=== PATIENT | male | born 1965 | race Caucasian/White ===

== ENCOUNTER → 2018-07-16 | Outpatient (CLI) | payer OTHER | LOC: M RAD 16:15 | DX: J32.0 Chronic maxillary sinusitis (principal) | CPT/HCPCS: 70486 ==

== ENCOUNTER 2018-11-09 22:02 | Day surgery (SDC) | payer OTHER ==
[~2018-11-09] VITALS: Ht 182.9 cm; Wt 105.0 kg
[2018-11-09] MEDS: MORPHINE 2 MG/ML 1ML SYRINGE (J2270) IV PRN ×4 (22:26→23:28)
[2018-11-09] MEDS ORDERED: ONDANSETRON 4MG/2ML VIAL (J2405) IV ONE (22:30)
[2018-11-09] MEDS ORDERED: NS 1,000 ML IV ONE (22:30)
[2018-11-09 23:14] LABS: BASO # 0.1 10^3/uL (0.0-0.2); BASO % 0.6 % (0.0-1.0); EOS # 0.2 10^3/uL (0.0-0.50); EOS % 1.6 % (0.0-3.0); HEMATOCRIT 42.4 % (42.0-52.0); HEMOGLOBIN 14.3 g/dl (13.5-17.5); LYMPH # 3.8 10^3/uL (1.5-4.5); LYMPH % 33.7 % (24.0-44.0); MEAN CORPUSCULAR HEMOGLOBIN 32.5 pg (27.0-33.0); MEAN CORPUSCULAR HGB CONC 33.7 g/dl (32.0-36.5); MEAN CORPUSCULAR VOLUME 96.4 fl (80.0-96.0); MONO # 0.7 10^3/uL (0.0-0.8); MONO % 6.5 % (0.0-5.0); NEUTROPHILS # 6.5 10^3/uL (1.8-7.7); NEUTROPHILS % 57.2 % (36.0-66.0); PLATELET COUNT, AUTOMATED 192 10^3/uL (150-450); WHITE BLOOD COUNT 11.4 10^3/uL (4.0-10.0)
[2018-11-09] MEDS ORDERED: ISOVUE-370 76% 100ML VIAL (Q9967) As Ordered ONE (23:17)
[2018-11-09] MEDS ORDERED: fentaNYL 100 MCG/2 ML INJECTION (J3010) IV ONE (23:30)
[2018-11-09 23:57] LABS: ALBUMIN 3.6 GM/DL (3.2-5.2); ALT/SGPT 40 U/L (12-78); BILIRUBIN,DIRECT < 0.1 MG/DL (0.0-0.2); BILIRUBIN,TOTAL 0.3 MG/DL (0.2-1.0); BLOOD UREA NITROGEN 18 MG/DL (7-18); CALCIUM LEVEL 8.2 MG/DL (8.5-10.1); CARBON DIOXIDE LEVEL 25 MEQ/L (21-32); CHLORIDE LEVEL 108 MEQ/L (98-107); CREATININE FOR GFR 1.07 MG/DL (0.70-1.30); GLOMERULAR FILTRATION RATE > 60.0 (>56); GLUCOSE, FASTING 131 MG/DL (70-100); LIPASE 70 U/L (73-393); POTASSIUM SERUM 4.4 MEQ/L (3.5-5.1); SODIUM LEVEL 142 MEQ/L (136-145)
[2018-11-10] MEDS ORDERED: HYDROMORPHONE HCL 0.5 MG/ 0.5 ML SYRINGE (J1170 PER 1) IV ONE ×2 (01:00→03:45)
--- NOTE | 2018-11-10 01:09 | REPVR ---
EXAM: CT Abdomen and Pelvis With Contrast EXAM DATE/TIME: 11/09/2018 10:19 PM CLINICAL HISTORY: 52 years old, male; Pain; Abdominal pain; Generalized; Additional info: Abdominal pain, eval for appy TECHNIQUE: Axial computed tomography images of the abdomen and pelvis with intravenous contrast. All CT scans at this facility use at least one of these dose optimization techniques: automated exposure control; mA and/or kV adjustment per patient size (includes targeted exams where dose is matched to clinical indication); or iterative reconstruction. Coronal and sagittal reformatted images were created and reviewed. CONTRAST: 100 ml of iso administered intravenously. COMPARISON: No relevant prior studies available. FINDINGS: Lower thorax: Dependent atelectasis in the lung. ABDOMEN: Liver: Cyst in the caudate lobe of the liver measuring 2.7 cm in diameter. Gallbladder and bile ducts: Cerebral gallstones in the gallbladder. No gallbladder wall thickening. CBD measures 13 mm in diameter. Pancreas: Normal. No ductal dilation. Spleen: Normal. No splenomegaly. Adrenals: Normal. No mass. Kidneys and ureters: Normal. No hydronephrosis. Stomach and bowel: Normal. No obstruction. No mucosal thickening. Negative for colonic diverticulitis. Appendix: Appendix is normal. PELVIS: Bladder: Unremarkable as visualized. Reproductive: Prostate is normal in size. ABDOMEN and PELVIS: Intraperitoneal space: Normal. No free air. No significant fluid collection. Bones/joints: No acute fracture. No dislocation. Soft tissues: Unremarkable. Vasculature: Mild atherosclerotic disease. No aortic aneurysm. Lymph nodes: Normal. No enlarged lymph nodes. IMPRESSION: Cholelithiasis without evidence of acute cholecystitis. Dilated CBD. Correlate with labs. Hepatic cyst. No followup is necessary. Additional findings as described. Electronically signed by: Marlyn Dumont On 11/10/2018 01:09:16 AM
--- NOTE | 2018-11-10 02:42 | REPVR ---
EXAM: US Abdomen Limited, Right Upper Quadrant EXAM DATE/TIME: 11/10/2018 2:17 AM CLINICAL HISTORY: 52 years old, male; Pain; Abdominal pain; Generalized; Additional info: Gb eval TECHNIQUE: Real-time ultrasound of the abdomen with image documentation. Examination was focused on the right upper quadrant. COMPARISON: CT ABD/PEL W/IV CONTRAST ONLY 11/10/2018 12:04 AM FINDINGS: Limitations: Examination is limited by body habitus. Liver: Normal. No masses. Gallbladder: Few nonmobile gallstone in the gallbladder. No ring down shadow. No gallbladder wall thickening. Gallbladder is distended. Common bile duct: CBD measures 10 mm in diameter. No biliary duct stone on ultrasound. Pancreas: Pancreas is obscured by overlying bowel gas. Right kidney: Right kidney measures 9.5 cm in length. No hydronephrosis. IMPRESSION: Few gallstones in the gallbladder. No evidence of acute cholecystitis on ultrasound. Dilated CBD. Correlate with labs. Distal obstructing stone or biliary lesion cannot be excluded. Electronically signed by: Marlyn Dumont On 11/10/2018 02:41:33 AM
[2018-11-10] MEDS: D5W/LR 1,000 ML IV SCH ×2 (03:41→08:45)
[2018-11-10] MEDS ORDERED: ONDANSETRON 4MG/2ML VIAL (J2405) IV ONE (03:45)
[2018-11-10] MEDS ORDERED: [UNRECOGNIZED DRUG - OTHER] EXT (04:04)
[2018-11-10] MEDS ORDERED: TIZA4CAP PO (04:04)
[2018-11-10] MEDS ORDERED: ARTI99.0 OU (04:04)
[2018-11-10] MEDS ORDERED: OCEA0.654 (04:04)
[2018-11-10] MEDS ORDERED: ASPI81CH PO (04:04)
[2018-11-10] MEDS ORDERED: FLON1SPR (04:04)
[2018-11-10] MEDS ORDERED: CELE100C PO (04:04)
[2018-11-10] MEDS ORDERED: PATIENT COMMENT (04:06)
[2018-11-10] MEDS ORDERED: ONDANSETRON 4MG/2ML VIAL (J2405) IV PRN ×2 (09:00→13:30)
[2018-11-10] MEDS ORDERED: ACETAMINOPHEN TAB 650MG DOSE (2X325MG) PO PRN (09:00)
[2018-11-10] MEDS ORDERED: MORPHINE 2 MG/ML 1ML SYRINGE (J2270) As Ordered ONE (09:22)
[2018-11-10] MEDS ORDERED: KETOROLAC 30 MG/ML VIAL (J1885) As Ordered ONE (09:22)
[2018-11-10] MEDS: MORPHINE 4 MG/ML 1ML VIAL/SYRINGE (J2270) IV PRN ×2 (09:25→18:51)
[2018-11-10] MEDS: KETOROLAC 30 MG/ML VIAL (J1885) IV PRN ×2 (09:26→17:25)
[2018-11-10] MEDS: SENOKOT S TAB PO SCH ×2 (09:33→21:37)
[2018-11-10] MEDS: NS 1,000 ML IV SCH ×2 (09:33→19:30)
[2018-11-10] MEDS: PIPERACILLIN/TAZOBACTAM SOD 3.375 GM in D5W MINI-BAG PLUS 50 ML IV SCH ×3 (10:22→21:38)
[2018-11-10] MEDS ORDERED: ONDANSETRON 4MG/2ML VIAL (J2405) As Ordered ONE (10:44)
[2018-11-10] MEDS ORDERED: dexameTHASONE 4 MG/ML 1ML VIAL (J1100) As Ordered ONE (10:44)
[2018-11-10] MEDS ORDERED: PROPOFOL 200 MG/20 ML VIAL As Ordered ONE (10:44)
[2018-11-10] MEDS ORDERED: LIDOCAINE 2% INJ 100 MG/5 ML SDV (FOR ANES.) As Ordered ONE (10:45)
[2018-11-10] MEDS ORDERED: ROCURONIUM BROMIDE 50 MG/5 ML VIAL As Ordered ONE (10:45)
[2018-11-10] MEDS ORDERED: MIDAZOLAM INJ 2 MG/2 ML VIAL (J2250) As Ordered ONE (10:48)
[2018-11-10] MEDS ORDERED: fentaNYL 250 MCG/5 ML INJECTION (J3010) As Ordered ONE (10:48)
[2018-11-10] MEDS ORDERED: BUPIVACAINE/EPIN 0.25% 30 ML VIAL As Ordered ONE (10:51)
[2018-11-10] MEDS ORDERED: PHENYLephrine HCL 500 MCG/5 ML (100MCG/ML) SYRINGE (J2370) As Ordered ONE (11:57)
[2018-11-10] MEDS ORDERED: METOCLOPRAMIDE INJ 10MG/2ML VIAL (J2765) As Ordered ONE (12:15)
[2018-11-10] MEDS ORDERED: KETOROLAC 60 MG/2 ML VIAL (J1885) As Ordered ONE (12:15)
[2018-11-10] MEDS ORDERED: HYDROmorphone HCL 2 MG/ML 1ML VIAL (J1170) As Ordered ONE (12:21)
[2018-11-10] MEDS ORDERED: SUGAMMADEX SODIUM 500 MG/5 ML VIAL (BRIDION) As Ordered ONE (12:28)
[2018-11-10] MEDS ORDERED: NORCOTAB PO (13:04)
--- NOTE | 2018-11-10 13:18 | HPE ---
DATE OF ADMISSION: 11/10/2018 CHIEF COMPLAINT: Abdominal pain. HISTORY OF PRESENT ILLNESS: The patient is a 52-year-old male who has had right upper back pain radiating to the right upper quadrant for the past 24-48 hours. It has been getting progressively worse associated with some nausea. He came into emergency room by ambulance late last evening when the pain was not improving thinking that he had kidney stones. In the ER they did a CT scan which showed stones lodged in the neck of the gallbladder which was confirmed with ultrasound. Therefore they called me to evaluate. He has severe right upper quadrant pain that was required Dilaudid and morphine to get become tolerable he was too uncomfortable to be discharged home to follow up as an outpatient so we discussed surgery during this admission. He denies having any pain like this in the past. He has had problems with back pain for many years and he thought that was all that was causing it. So he has been ignoring the pains the past day or so. No emesis. No changes in bowel movements. No trauma to the abdomen. No recent illnesses or travel. No previous surgery to the upper abdomen. PAST MEDICAL HISTORY: Back pain, degenerative joint disease, tobacco abuse. Sinus bradycardia PAST SURGICAL HISTORY: Left shoulder surgery, right wrist left-hand. ALLERGIES: Hay fever and mold. MEDICATIONS: Please see med record. SOCIAL HISTORY: Smokes half-pack a day. Social alcohol usage. Denies any drug abuse. FAMILY HISTORY: Noncontributory. REVIEW OF SYSTEMS: Pertinent, positives and negatives stated in the history of present illness. PHYSICAL EXAMINATION: He is alert and oriented times three. Vitals: Temperature 97.4, pulse 68, respirations 16, blood pressure 104/55, pulse ox 97% room air. HEENT: Pupils equal round react to light accommodation. Heart: S1-S2 regular rate and Lungs: Clear auscultation bilaterally. Abdomen: Soft and tender to palpation right upper quadrant. Localized guarding, no rebound or rigidity. Extremities: No clubbing, cyanosis or edema. LABORATORY DATA: White count 11.4, hemoglobin 14.3, platelets 192. LFTs within normal limits. Lactic acid 1.2. IMAGING STUDIES: Ultrasound of the abdomen showed gallstones in the gallbladder that were non-mobile right in the neck of the gallbladder common bile duct to 10 mm. No signs of any acute cholecystitis. ASSESSMENT/PLAN: The patient is a 52-year-old male with symptomatic cholelithiasis with likely stone lodged in the neck of the gallbladder. RECOMMENDATIONS: Proceed with a laparoscopic possible open cholecystectomy. Risks and benefits of the procedure not limited to but including bleeding, infection, hernia formation, damage to surrounding structures, need for further surgery discussed in detail with the patient. Informed was obtained and procedure was planned for this afternoon. Plan is to discharge postoperatively.
--- NOTE | 2018-11-10 13:22 | RO ---
DATE OF PROCEDURE: 11/10/2018 PREOPERATIVE DIAGNOSIS: Symptomatic cholelithiasis. POSTOPERATIVE DIAGNOSIS: Acute calculus cholecystitis. SURGEON: Dr. Martinez VISUALIZER: Ratna Rolon ANESTHESIA: General. ESTIMATED BLOOD LOSS: 5 mL COMPLICATIONS: None. INDICATIONS FOR PROCEDURE: The patient is a 52-year-old male with right upper quadrant abdominal pain found have symptomatic cholelithiasis on ultrasound. Recommendation was to proceed with laparoscopic possible open cholecystectomy. Risks and benefits of the procedure not limited to but including bleeding, infection, hernia formation, damage to surrounding structure need for further surgery discussed in detail with the patient and informed consent was obtained procedure was planned. PROCEDURE: The patient brought back to operating room seven. After sufficient sedation the abdomen sterilely prepped and draped. Next time-out was done to confirm proper patient and proper procedure. Following that a stab incision made in the left lower quadrant. Veress needle was inserted and the abdomen was insufflated to the abdomen was insufflated to 15 mmHg. Next a 5 mm supraumbilical midline incision was made and a 5 mm Optiview port was used to gain access to the abdomen. Once the abdomen was entered another 11 mm port placed subxiphoid, two 5 mm ports in the right upper quadrant. Fundus of the gallbladder was grasped, elevated up towards right shoulder. Upon grabbing the gallbladder, it perforated. The wall was very thickened edematous. Bilious drainage was aspirated. Using blunt sharp dissection the cystic duct and cystic artery were carefully dissected free until they are both clearly identified and they are both doubly clipped and cut. Gallbladder was then dissected free from the gallbladder fossa using electrocautery and brought out through the subxiphoid port site. Right upper quadrant was irrigated. Hemostasis was controlled of liver bed using electrocautery. Once this was completed the abdomen was desufflated. Skin incisions were closed 4-0 Vicryl subcuticular sutures. The abdomen was cleaned and dried. Steri-Strips 4x4 and tape were applied thus ending procedure.
[2018-11-10] MEDS ORDERED: PERCOCET 5MG/325MG TAB PO PRN (13:30)
[2018-11-10] MEDS ORDERED: LR 1,000 ML IV SCH (13:30)
[2018-11-10] MEDS ORDERED: fentaNYL 100 MCG/2 ML INJECTION (J3010) IV PRN (13:30)
[2018-11-10] MEDS ORDERED: ePHEDrine SULFATE 25 MG/5 ML(5MG/ML) SYRINGE As Ordered ONE (13:44)
[2018-11-10 15:30] VITALS: BP 116/62
[2018-11-10 16:00] VITALS: BP 125/70
[2018-11-10 17:00] VITALS: BP 110/60
[2018-11-10] MEDS: NORCO, ANEXSIA 5/325MG TABLET (HYDROcodone/ACETAMINOPHEN) PO PRN (17:21)
[2018-11-10 18:00] VITALS: BP 122/68
[2018-11-10 19:00] VITALS: BP 104/54
[2018-11-10 20:00] VITALS: BP 113/62
[2018-11-11] VITALS: BP 125/65
[2018-11-11] MEDS: PIPERACILLIN/TAZOBACTAM SOD 3.375 GM in D5W MINI-BAG PLUS 50 ML IV SCH ×2 (03:59→08:25)
[2018-11-11 04:00] VITALS: BP 107/56
[2018-11-11] MEDS: NS 1,000 ML IV SCH (07:28)
[2018-11-11 08:00] VITALS: BP 115/71
[2018-11-11] MEDS: SENOKOT S TAB PO SCH (08:23)
[2018-11-11] MEDS: NORCO, ANEXSIA 5/325MG TABLET (HYDROcodone/ACETAMINOPHEN) PO PRN (08:24)
== END 2018-11-11 10:25 | disposition home or self-care (01) ==
LOC: M ED 22:02 → EDBD 22:02 → M SDC 22:58 → M PED 11-10 15:30 → M SDC 11-11 10:25
PROVIDERS: ATTEND Surgery
DX: K80.00 Calculus of gallbladder with acute cholecystitis without obstruction (principal); G47.33 Obstructive sleep apnea (adult) (pediatric); M54.9 Dorsalgia, unspecified; R00.1 Bradycardia, unspecified; J30.89 Other allergic rhinitis; Z91.09 Other allergy status, other than to drugs and biological substances; Z72.0 Tobacco use
CPT/HCPCS: 47562; 74177; 76705; 80048; 80076; 81001; 83605; 83690; 85025; 88304; 96374; 96375; 96376; 99285; J1100; J1170; J1885; J2250; J2270; J2370; J2405; J2543; J2765; J3010; Q9967

== ENCOUNTER 2019-01-25 10:01 | Day surgery (SDC) | payer OTHER ==
[~2019-01-25] VITALS: Ht 182.9 cm; Wt 106.5 kg
[~2019-01-25 10:01] MED LIST: ARTI99.0 OU; ASPI81CH49 PO; CELE100C PO; FLON1SPR; FLUT22IN INH; HYDR-3715 PO; LR 1,000 ML IV ONE; MONT10TA2 PO; OCEA0.654; PATIENT COMMENT; RANI1TAB6 PO; SULF10EM7 TOP; TESS100C PO; TIZA4CAP PO; VENTAER INH; [UNRECOGNIZED DRUG - OTHER] EXT
[2019-01-25] MEDS ORDERED: LIDOCAINE 2% INJ 100 MG/5 ML SDV (FOR ANES.) As Ordered ONE (12:26)
[2019-01-25] MEDS ORDERED: PROPOFOL 200 MG/20 ML VIAL As Ordered ONE (12:26)
[2019-01-25] MEDS ORDERED: ROCURONIUM BROMIDE 50 MG/5 ML VIAL As Ordered ONE (12:26)
[2019-01-25] MEDS ORDERED: BUPIVACAINE/EPIN 0.25% 30 ML VIAL As Ordered ONE (12:34)
[2019-01-25] MEDS ORDERED: MIDAZOLAM INJ 2 MG/2 ML VIAL (J2250) As Ordered ONE (12:45)
[2019-01-25] MEDS ORDERED: fentaNYL 100 MCG/2 ML INJECTION (J3010) As Ordered ONE (12:45)
[2019-01-25] MEDS ORDERED: ONDANSETRON 4MG/2ML VIAL (J2405) As Ordered ONE (12:47)
[2019-01-25] MEDS ORDERED: dexameTHASONE 4 MG/ML 1ML VIAL (J1100) As Ordered ONE ×2 (12:47→12:48)
[2019-01-25] MEDS ORDERED: KETOROLAC 60 MG/2 ML VIAL (J1885) As Ordered ONE (12:47)
[2019-01-25] MEDS ORDERED: SUGAMMADEX SODIUM 500 MG/5 ML VIAL (BRIDION) As Ordered ONE (12:52)
[2019-01-25] MEDS ORDERED: LR 1,000 ML IV SCH (14:45)
[2019-01-25] MEDS ORDERED: NORCO, ANEXSIA 5/325MG TABLET (HYDROcodone/ACETAMINOPHEN) PO PRN (14:45)
[2019-01-25] MEDS ORDERED: oxyCODONE 5MG TAB PO PRN (14:45)
[2019-01-25] MEDS: fentaNYL 100 MCG/2 ML INJECTION (J3010) IV PRN ×4 (15:00→15:15)
[2019-01-25] MEDS: ONDANSETRON 4MG/2ML VIAL (J2405) IV PRN (15:00)
[2019-01-25 16:40] VITALS: BP 136/70
--- NOTE | 2019-01-26 08:39 | RO ---
DATE OF PROCEDURE: 01/25/2019 PREOPERATIVE DIAGNOSIS: Incarcerated umbilical hernia. POSTOPERATIVE DIAGNOSIS: Incarcerated umbilical hernia. PROCEDURE: Laparoscopic repair of incarcerated umbilical hernia with mesh. SURGEON: Dr. Martinez [employer]QUOR STORE MANAGER: None. ANESTHESIA: General. ESTIMATED BLOOD LOSS: 5. COMPLICATIONS: None. INDICATIONS FOR PROCEDURE: Patient is a 53-year-old male who presents with an umbilical hernia that was nonreducible. Recommendation was to proceed with laparoscopic repair. Risks and benefits of procedure not limited to, but including, bleeding, infection, hernia recurrence, hernia formation, damage to surrounding structures, need for further surgery were discussed in detail with the patient. Informed consent was obtained and procedure was planned. DESCRIPTION OF PROCEDURE: Patient was brought back to operating room #3. After sufficient sedation, the abdomen was sterilely prepped and draped. Next, time-out was done to confirm proper patient and proper procedure. Following that, 5 mm incision made in left upper quadrant. Veress needle was inserted. Then the abdomen was insufflated to 15 mmHg. Once inside, there was incarcerated omentum in an umbilical hernia. Another 5 mm port was placed in the left lower quadrant. Next, using the Enseal, the hernia sac and contents were all reduced circumferentially. Once completed, a 9 cm round Parietex mesh had #0 Vicryl sutures placed in all four corners. It was then placed inside the abdomen. The transfascial sutures were brought out through the abdominal wall using a Jf-Bolivar needle. Once this was completed, the Securestrap tacker was used to place a row of tacks around the mesh. The abdomen was then desufflated. Skin incisions were closed #4-0 Vicryl subcuticular sutures. The abdomen was cleaned and dried. Steri-Strips, 4 x 4, and tape were applied, thus ending procedure.
== END 2019-01-25 16:53 | disposition home or self-care (01) ==
LOC: M SDC 10:01
PROVIDERS: ATTEND Surgery
DX: K42.0 Umbilical hernia with obstruction, without gangrene (principal); K21.9 Gastro-esophageal reflux disease without esophagitis; F43.10 Post-traumatic stress disorder, unspecified; F41.9 Anxiety disorder, unspecified; G47.30 Sleep apnea, unspecified; F17.210 Nicotine dependence, cigarettes, uncomplicated; Z79.82 Long term (current) use of aspirin; Z79.51 Long term (current) use of inhaled steroids; Z79.899 Other long term (current) drug therapy
CPT/HCPCS: 49653; C1781; J0690; J1100; J1885; J2250; J2405; J3010